=== PATIENT | male | born 1955 | race Caucasian/White ===

== ENCOUNTER → 2018-01-19 | Outpatient (CLI) | payer OTHER | END | disposition home or self-care (01) | LOC: CFH 12:04 | PROVIDERS: ATTEND Family Medicine | DX: J44.9 Chronic obstructive pulmonary disease, unspecified (principal); R09.89 Other specified symptoms and signs involving the circulatory and respiratory systems | CPT/HCPCS: 71046 ==

== ENCOUNTER 2018-06-05 16:24 | Inpatient (IN) | payer OTHER ==
[~2018-06-05] VITALS: Ht 172.7 cm; Wt 113.7 kg
--- NOTE | 2018-06-05 16:51 | NUR ---
Pt to 29 from lobby
[2018-06-05 17:02] LABS: BASOPHILS # (AUTO) 0.06 x10^3/uL (0-0.1); BASOPHILS % (AUTO) 1 % (0-1); EOSINOPHILS # (AUTO) 0.18 x10^3/uL (0-0.4); EOSINOPHILS % (AUTO) 2 % (1-7); LYMPHOCYTES # (AUTO) 1.03 x10^3/uL (1-3.4); LYMPHOCYTES % (AUTO) 14 % (22-44); MD NO; MEAN CORPUSCULAR HEMOGLOBIN 30.6 pg (27.5-34.5); MEAN CORPUSCULAR HGB CONC 33.7 g/dL (33.2-36.2); MEAN CORPUSCULAR VOLUME 90.9 fL (81-97); MEAN PLATELET VOLUME 8.5 fL (7.4-10.4); MONOCYTES # (AUTO) 0.73 x10^3/uL (0.2-0.8); MONOCYTES % (AUTO) 10 % (2-9); NEUTROPHILS # (AUTO) 5.59 x10^3/uL (1.8-6.8); NEUTROPHILS % (AUTO) 74 % (42-75); PLATELET COUNT 251 x10^3/uL (130-400); RED BLOOD COUNT 5.23 x10^6/uL (4.38-5.82); RED CELL DISTRIBUTION WIDTH 13.7 % (9.4-14.8)
[2018-06-05] MEDS ORDERED: methylPREDNISolone SOD SUCC 125 MG/2 ML ONE (17:12)
[2018-06-05 17:14] LABS: ALBUMIN 4.2 g/dL (3.4-5.0); ANION GAP 5 mmol/L (5-15); CALCIUM 8.7 mg/dL (8.5-10.1); CHLORIDE 106 mmol/L (98-107); CREATININE 1.03 mg/dL (0.7-1.3)
[2018-06-05] MEDS ORDERED: ALBUTEROL/IPRATROPIUM 2.5MG/0.5MG, 3 ML ONE ×2 (17:15→21:23)
[2018-06-05 17:19] LABS: TROPONIN I < 0.015 ng/mL (0.000-0.045)
[2018-06-05] MEDS ORDERED: methylPREDNISolone SOD SUCC 125 MG/2 ML IVPush SCH (17:30)
[2018-06-05] MEDS ORDERED: ALBUTEROL/IPRATROPIUM 2.5MG/0.5MG, 3 ML NPPB SCH (17:30)
--- NOTE | 2018-06-05 17:39 | NUR ---
LATE ENTRY: PT ARRIVES TO ED WITH C/O OF SOB X 2 DAYS. PT REPORTS HE HAS HAD DIFFICULTY AMBULATING DUE TO SOB AND NOT BEING ABLE TO CATCH HIS BREATH. PT DENIES ANY RECENT ILLNESS. PT DOES HAVE COPD AND DOES NOT HAVE EXACERBATIONS VERY OFTEN. PT ON ARRIVAL WAS HYPOXIC SO HE WAS PLACED ON O2 AND PIV PLACED. PT CONNECTED TO ALL MONITORS AND CALL LIGHT IN REACH. AWAITING FURTHER ORDERS.
[2018-06-05] MEDS ORDERED: CEFTRIAXONE PMX 1GM/50ML 50 ML ONE (17:49)
[2018-06-05] MEDS ORDERED: FLUT1BLS3 PO (18:26)
[2018-06-05] MEDS ORDERED: ALBU8.5H8 PO (18:27)
[2018-06-05] MEDS ORDERED: AMLO10TA8 PO (18:27)
[2018-06-05] MEDS ORDERED: GUAIFENESIN/DM 200-20MG, 10ML UDC PO PRN (19:00)
[2018-06-05] MEDS ORDERED: ACETAMINOPHEN 325 MG TABLET PO PRN (19:00)
[2018-06-05] MEDS ORDERED: BISACODYL 10 MG SUPP PR PRN (19:00)
[2018-06-05] MEDS ORDERED: ONDANSETRON ODT 4 MG PO PRN (19:00)
[2018-06-05] MEDS ORDERED: MAGNESIUM SULFATE PMX 2GM/50ML 50 ML IV ONE (19:00)
[2018-06-05] MEDS ORDERED: POLYETHYLENE GLYCOL 17 GM PACKET PO PRN (19:00)
--- NOTE | 2018-06-05 19:51 | NUR ---
PT UPDATED ON POC AND VERBALIZES UNDERSTANDING. VSS AND UPDATED IN EMR. ATTEMPTED REPORT OF PT TO DENNIS COHEN, BUT PER FLOOR, RN UNAVAILABLE FOR REPORT AT THIS TIME.
[2018-06-05 20:35] VITALS: BP 143/80
[2018-06-05] MEDS: HEPARIN 5,000 UNITS/ML, 1ML SQ SCH (21:02)
[2018-06-05] MEDS: DOXYCYCLINE 100 MG in DEXTROSE 5% 250 ML IV SCH (21:03)
[2018-06-05] MEDS: SODIUM CHLORIDE FLUSH 10ML SYR IVF SCH (21:04)
[2018-06-05] MEDS: ALBUTEROL/IPRATROPIUM 2.5MG/0.5MG, 3 ML NPPB SCH (21:30)
[2018-06-05] MEDS ORDERED: ALBUTEROL/IPRATROPIUM 2.5MG/0.5MG, 3 ML NPPB PRN (21:30)
[2018-06-05] MEDS: methylPREDNISolone SOD SUCC 125 MG/2 ML IVPush SCH (23:20)
[2018-06-06 02:23] VITALS: BP 115/61
[2018-06-06] MEDS: ALBUTEROL/IPRATROPIUM 2.5MG/0.5MG, 3 ML NPPB SCH ×4 (03:00→21:15)
[2018-06-06] MEDS: methylPREDNISolone SOD SUCC 125 MG/2 ML IVPush SCH ×4 (05:17→23:23)
[2018-06-06] MEDS: HEPARIN 5,000 UNITS/ML, 1ML SQ SCH ×3 (05:17→20:55)
[2018-06-06 05:25] LABS: CHLORIDE 105 mmol/L (98-107)
[2018-06-06 05:26] LABS: BASOPHILS # (AUTO) 0.01 x10^3/uL (0-0.1); BASOPHILS % (AUTO) 0 % (0-1); EOSINOPHILS % (AUTO) 0 % (1-7); LYMPHOCYTES % (AUTO) 11 % (22-44); MD NO; MEAN CORPUSCULAR HEMOGLOBIN 30.8 pg (27.5-34.5); MEAN CORPUSCULAR HGB CONC 33.9 g/dL (33.2-36.2); MEAN CORPUSCULAR VOLUME 90.8 fL (81-97); MEAN PLATELET VOLUME 8.6 fL (7.4-10.4); MONOCYTES # (AUTO) 0.14 x10^3/uL (0.2-0.8); MONOCYTES % (AUTO) 3 % (2-9); NEUTROPHILS # (AUTO) 4.56 x10^3/uL (1.8-6.8); NEUTROPHILS % (AUTO) 86 % (42-75); PLATELET COUNT 218 x10^3/uL (130-400); RED BLOOD COUNT 4.75 x10^6/uL (4.38-5.82); RED CELL DISTRIBUTION WIDTH 13.6 % (9.4-14.8)
[2018-06-06 05:34] LABS: ALANINE AMINOTRANSFERASE 27 U/L (12-78); ALBUMIN 3.6 g/dL (3.4-5.0); ALKALINE PHOSPHATASE 78 U/L (45-117); ANION GAP 4 mmol/L (5-15); BILIRUBIN,TOTAL 0.5 mg/dL (0.2-1.0); CALCIUM 8.5 mg/dL (8.5-10.1); CREATININE 0.89 mg/dL (0.7-1.3)
[2018-06-06] MEDS: BUDESONIDE 0.5 MG/2 ML INHA NPPB SCH ×2 (07:07→21:15)
[2018-06-06 07:40] VITALS: BP 122/72
[2018-06-06] MEDS: SENNA/DOCUSATE TABLET PO SCH (08:52)
[2018-06-06] MEDS: AMLODIPINE 10 MG TAB PO SCH (08:52)
[2018-06-06] MEDS: SODIUM CHLORIDE FLUSH 10ML SYR IVF SCH ×2 (08:53→20:55)
[2018-06-06] MEDS: DOXYCYCLINE 100 MG in DEXTROSE 5% 250 ML IV SCH ×2 (08:53→20:54)
[2018-06-06] MEDS ORDERED: MAALOX/HYOSCYAMINE/LIDOCAINE 45 ML BTL PO PRN (11:30)
[2018-06-06] MEDS: PANTOPROZOLE 40MG TABLET PO SCH (11:54)
[2018-06-06 13:21] VITALS: BP 139/73
[2018-06-06 20:32] VITALS: BP 126/72
[2018-06-07 00:59] VITALS: BP 142/78
[2018-06-07] MEDS: ALBUTEROL/IPRATROPIUM 2.5MG/0.5MG, 3 ML NPPB SCH ×4 (03:15→18:31)
[2018-06-07] MEDS: HEPARIN 5,000 UNITS/ML, 1ML SQ SCH ×3 (04:28→21:52)
[2018-06-07] MEDS: PANTOPROZOLE 40MG TABLET PO SCH (04:29)
[2018-06-07] MEDS: methylPREDNISolone SOD SUCC 125 MG/2 ML IVPush SCH ×2 (04:29→11:06)
[2018-06-07] MEDS: BUDESONIDE 0.5 MG/2 ML INHA NPPB SCH ×2 (07:02→18:31)
[2018-06-07 07:30] VITALS: BP 125/71
[2018-06-07] MEDS: AMLODIPINE 10 MG TAB PO SCH (09:13)
[2018-06-07] MEDS: DOXYCYCLINE 100 MG in DEXTROSE 5% 250 ML IV SCH ×2 (09:13→21:52)
[2018-06-07] MEDS: SENNA/DOCUSATE TABLET PO SCH (09:13)
[2018-06-07] MEDS: SODIUM CHLORIDE FLUSH 10ML SYR IVF SCH ×2 (09:14→21:52)
[2018-06-07 12:29] VITALS: BP 114/60
[2018-06-07] MEDS: methylPREDNISolone SOD SUCC 40 MG/ML IVPush SCH (19:31)
[2018-06-07 20:36] VITALS: BP 129/69
[2018-06-08] MEDS: ALBUTEROL/IPRATROPIUM 2.5MG/0.5MG, 3 ML NPPB SCH ×4 (02:37→18:40)
[2018-06-08 03:32] VITALS: BP 136/68
[2018-06-08] MEDS: methylPREDNISolone SOD SUCC 40 MG/ML IVPush SCH ×3 (04:12→19:45)
[2018-06-08] MEDS: PANTOPROZOLE 40MG TABLET PO SCH (05:19)
[2018-06-08] MEDS: HEPARIN 5,000 UNITS/ML, 1ML SQ SCH ×3 (05:19→21:55)
[2018-06-08 07:25] VITALS: BP 128/70
[2018-06-08] MEDS: SENNA/DOCUSATE TABLET PO SCH (08:53)
[2018-06-08] MEDS: AMLODIPINE 10 MG TAB PO SCH (08:53)
[2018-06-08] MEDS: SODIUM CHLORIDE FLUSH 10ML SYR IVF SCH ×2 (08:54→19:45)
[2018-06-08] MEDS: DOXYCYCLINE 100 MG in DEXTROSE 5% 250 ML IV SCH ×2 (08:54→21:56)
[2018-06-08] MEDS: BUDESONIDE 0.5 MG/2 ML INHA NPPB SCH ×2 (10:06→18:40)
[2018-06-08 12:13] VITALS: BP 121/59
[2018-06-08 20:20] VITALS: BP 130/64
[2018-06-09 01:05] VITALS: BP 144/77
[2018-06-09] MEDS: ALBUTEROL/IPRATROPIUM 2.5MG/0.5MG, 3 ML NPPB SCH ×4 (03:00→18:44)
[2018-06-09] MEDS: methylPREDNISolone SOD SUCC 40 MG/ML IVPush SCH ×3 (03:22→19:26)
[2018-06-09] MEDS: HEPARIN 5,000 UNITS/ML, 1ML SQ SCH ×3 (05:03→21:59)
[2018-06-09] MEDS: PANTOPROZOLE 40MG TABLET PO SCH (05:03)
[2018-06-09 07:40] VITALS: BP 155/80
[2018-06-09] MEDS: SENNA/DOCUSATE TABLET PO SCH (07:57)
[2018-06-09] MEDS: AMLODIPINE 10 MG TAB PO SCH (07:57)
[2018-06-09] MEDS: SODIUM CHLORIDE FLUSH 10ML SYR IVF SCH ×2 (09:00→21:59)
[2018-06-09] MEDS ORDERED: GUAI5SYR PO (09:14)
[2018-06-09] MEDS ORDERED: DOXY100T PO (09:14)
[2018-06-09] MEDS ORDERED: PRED20TA PO (09:14)
[2018-06-09] MEDS ORDERED: IPRA3AMP30 NPPB (09:14)
[2018-06-09] MEDS: BUDESONIDE 0.5 MG/2 ML INHA NPPB SCH ×2 (09:23→18:44)
[2018-06-09] MEDS: DOXYCYCLINE 100 MG in DEXTROSE 5% 250 ML IV SCH ×2 (09:37→21:59)
[2018-06-09 12:51] VITALS: BP 149/79
[2018-06-09 18:41] VITALS: BP 134/77
[2018-06-10 01:03] VITALS: BP 153/81
[2018-06-10] MEDS: ALBUTEROL/IPRATROPIUM 2.5MG/0.5MG, 3 ML NPPB SCH ×2 (01:08→09:00)
[2018-06-10] MEDS: methylPREDNISolone SOD SUCC 40 MG/ML IVPush SCH ×2 (03:22→10:21)
[2018-06-10] MEDS: HEPARIN 5,000 UNITS/ML, 1ML SQ SCH (05:24)
[2018-06-10] MEDS: PANTOPROZOLE 40MG TABLET PO SCH (05:24)
[2018-06-10 07:25] VITALS: BP 170/96
[2018-06-10] MEDS: DOXYCYCLINE 100 MG in DEXTROSE 5% 250 ML IV SCH (08:41)
[2018-06-10] MEDS: AMLODIPINE 10 MG TAB PO SCH (08:42)
[2018-06-10] MEDS: SENNA/DOCUSATE TABLET PO SCH (08:42)
[2018-06-10] MEDS: BUDESONIDE 0.5 MG/2 ML INHA NPPB SCH (09:00)
[2018-06-10] MEDS: SODIUM CHLORIDE FLUSH 10ML SYR IVF SCH (09:00)
== END 2018-06-10 12:17 | disposition home health service (06) | DRG 189 ==
LOC: ED 17:00 → EDIP 17:31 → 4NOR 20:33
PROVIDERS: ADMIT Hospitalist; ATTEND Hospitalist
DX: J96.21 Acute and chronic respiratory failure with hypoxia (principal); J44.1 Chronic obstructive pulmonary disease with (acute) exacerbation; G47.419 Narcolepsy without cataplexy; I10 Essential (primary) hypertension; K21.9 Gastro-esophageal reflux disease without esophagitis; Z82.0 Family history of epilepsy and other diseases of the nervous system; Z87.891 Personal history of nicotine dependence; Z99.81 Dependence on supplemental oxygen
CPT/HCPCS: 36415; 99285; J7620; J7626; 71045; 80048; 80053; 82040; 83880; 84484; 85025; 93005; 94640; 96374; 96375; G0378; J1644; J7060; J2920; J2930; J3475

== ENCOUNTER → 2018-08-10 | Outpatient (CLI) | payer OTHER ==
[~2018-08-10] MED LIST: ALBU8.5H8 PO; AMLO10TA8 PO; DOXY100T PO; FLUT1BLS3 PO; GUAI5SYR PO; IPRA3AMP30 NPPB; PRED20TA PO
== END | disposition home or self-care (01) ==
LOC: CFH 09:27
PROVIDERS: ATTEND Nurse Practitioner
DX: Z12.2 Encounter for screening for malignant neoplasm of respiratory organs (principal); R91.8 Other nonspecific abnormal finding of lung field; Z87.891 Personal history of nicotine dependence
CPT/HCPCS: G0297

== ENCOUNTER → 2018-08-16 | Outpatient (CLI) | payer OTHER | END | disposition home or self-care (01) | LOC: CFH 13:33 | PROVIDERS: ATTEND Family Medicine | DX: J44.9 Chronic obstructive pulmonary disease, unspecified (principal); R01.1 Cardiac murmur, unspecified; I10 Essential (primary) hypertension | CPT/HCPCS: 93306 ==

== ENCOUNTER → 2018-10-05 | Outpatient (CLI) | payer OTHER ==
[~2018-10-05] MED LIST changes: +REGADENOSON 0.4 MG/5 ML SYRINGE ONE
== END | disposition home or self-care (01) ==
LOC: CFH 08:17
PROVIDERS: ATTEND Internal Medicine Cardiovascular Disease
DX: R94.31 Abnormal electrocardiogram [ECG] [EKG] (principal)
CPT/HCPCS: 78452; 93017; A9502; J2785

== ENCOUNTER 2018-11-21 22:02 | Emergency (ER) | payer OTHER ==
[~2018-11-21] VITALS: Ht 172.7 cm; Wt 112.0 kg
[2018-11-21 22:12] VITALS: BP 162/104
== END 2018-11-21 23:17 | disposition home or self-care (01) ==
LOC: ED 23:00
DX: M10.072 Idiopathic gout, left ankle and foot (principal); J44.9 Chronic obstructive pulmonary disease, unspecified; I10 Essential (primary) hypertension
CPT/HCPCS: 73610; 73630; 96372; 99283; J1885

== ENCOUNTER 2019-02-26 11:33 | Emergency (ER) | payer OTHER ==
[~2019-02-26] VITALS: Ht 170.2 cm; Wt 111.0 kg
[~2019-02-26 11:33] MED LIST changes: -REGADENOSON 0.4 MG/5 ML SYRINGE ONE
--- NOTE | 2019-02-26 12:28 | NUR ---
Plan of care updated with patient, questions answered.
[2019-02-26 12:58] LABS: BASOPHILS # (AUTO) 0.04 x10^3/uL (0-0.1); BASOPHILS % (AUTO) 1 % (0-1); EOSINOPHILS # (AUTO) 0.18 x10^3/uL (0-0.4); EOSINOPHILS % (AUTO) 3 % (1-7); LYMPHOCYTES # (AUTO) 0.94 x10^3/uL (1-3.4); LYMPHOCYTES % (AUTO) 17 % (22-44); MD NO; MEAN CORPUSCULAR HEMOGLOBIN 30.6 pg (27.5-34.5); MEAN CORPUSCULAR HGB CONC 32.8 g/dL (33.2-36.2); MEAN CORPUSCULAR VOLUME 93.3 fL (81-97); MEAN PLATELET VOLUME 8.8 fL (7.4-10.4); MONOCYTES # (AUTO) 0.53 x10^3/uL (0.2-0.8); MONOCYTES % (AUTO) 9 % (2-9); NEUTROPHILS # (AUTO) 3.93 x10^3/uL (1.8-6.8); NEUTROPHILS % (AUTO) 70 % (42-75); PLATELET COUNT 223 x10^3/uL (130-400); RED BLOOD COUNT 4.69 x10^6/uL (4.38-5.82); RED CELL DISTRIBUTION WIDTH 14.5 % (9.4-14.8)
[2019-02-26 13:10] LABS: ALBUMIN 3.9 g/dL (3.4-5.0); ANION GAP 3 mmol/L (5-15); CALCIUM 8.9 mg/dL (8.5-10.1); CHLORIDE 107 mmol/L (98-107); CREATININE 0.86 mg/dL (0.7-1.3)
[2019-02-26 13:19] LABS: HCT (SEDRATE) 43.8 % (39.2-51.8)
--- NOTE | 2019-02-26 13:51 | NUR ---
Plan of care updated, call duarte within reach. Waiting for ESR results.
[2019-02-26] MEDS ORDERED: FLUT1BLS3 IH (14:19)
[2019-02-26 14:26] VITALS: BP 151/84
--- NOTE | 2019-02-26 14:27 | NUR ---
Discharge instructions discussed with patient including when to return to emergency department, patient verbalizes understanding. Prescriptions given to patient with instruction for use, verbalize understanding. Patient ambulates out of department with steady gait.
--- NOTE | 2019-02-26 14:27 | NUR ---
Wound care fax referral sent with appropriate documents.
== END 2019-02-26 14:30 | disposition home or self-care (01) ==
LOC: ED 12:45
DX: L89.629 Pressure ulcer of left heel, unspecified stage (principal); L08.9 Local infection of the skin and subcutaneous tissue, unspecified; I10 Essential (primary) hypertension; J44.9 Chronic obstructive pulmonary disease, unspecified; Z87.891 Personal history of nicotine dependence
CPT/HCPCS: 36415; 80048; 82040; 85025; 85651; 99284

== ENCOUNTER → 2019-03-01 | Outpatient (CLI) | payer OTHER ==
[~2019-03-01] MED LIST changes: +FLUT1BLS3 IH
== END | disposition home or self-care (01) ==
LOC: WOUND 08:55
PROVIDERS: ATTEND Internal Medicine
DX: I70.245 Atherosclerosis of native arteries of left leg with ulceration of other part of foot (principal); L97.521 Non-pressure chronic ulcer of other part of left foot limited to breakdown of skin; I87.311 Chronic venous hypertension (idiopathic) with ulcer of right lower extremity; L97.212 Non-pressure chronic ulcer of right calf with fat layer exposed; J44.9 Chronic obstructive pulmonary disease, unspecified; E66.9 Obesity, unspecified; Z87.891 Personal history of nicotine dependence; Z68.38 Body mass index [BMI] 38.0-38.9, adult
CPT/HCPCS: 97597; 99215

== ENCOUNTER 2019-03-08 09:07 | Outpatient (CLI) | END 2019-03-08 23:59 | disposition home or self-care (01) | LOC: WOUND 09:07 | PROVIDERS: ATTEND Internal Medicine | DX: I70.245 Atherosclerosis of native arteries of left leg with ulceration of other part of foot (principal); L97.521 Non-pressure chronic ulcer of other part of left foot limited to breakdown of skin; I87.311 Chronic venous hypertension (idiopathic) with ulcer of right lower extremity; L97.212 Non-pressure chronic ulcer of right calf with fat layer exposed; J44.9 Chronic obstructive pulmonary disease, unspecified; E66.9 Obesity, unspecified; Z87.891 Personal history of nicotine dependence; Z68.38 Body mass index [BMI] 38.0-38.9, adult | CPT/HCPCS: 97597 ==

== ENCOUNTER 2019-03-15 11:00 | Outpatient (CLI) | payer OTHER | END 2019-03-15 23:59 | disposition home or self-care (01) | LOC: WOUND 11:00 | PROVIDERS: ATTEND Internal Medicine | DX: I70.245 Atherosclerosis of native arteries of left leg with ulceration of other part of foot (principal); L97.521 Non-pressure chronic ulcer of other part of left foot limited to breakdown of skin; I87.311 Chronic venous hypertension (idiopathic) with ulcer of right lower extremity; L97.212 Non-pressure chronic ulcer of right calf with fat layer exposed; J44.9 Chronic obstructive pulmonary disease, unspecified; E66.9 Obesity, unspecified; Z87.891 Personal history of nicotine dependence; Z68.38 Body mass index [BMI] 38.0-38.9, adult | CPT/HCPCS: 99214 ==

== ENCOUNTER 2019-03-15 12:53 | Outpatient (CLI) | payer OTHER | END 2019-03-15 23:59 | disposition home or self-care (01) | LOC: CVU 12:53 | PROVIDERS: ATTEND Internal Medicine | DX: I82.812 Embolism and thrombosis of superficial veins of left lower extremity (principal); I70.203 Unspecified atherosclerosis of native arteries of extremities, bilateral legs; I10 Essential (primary) hypertension; L97.421 Non-pressure chronic ulcer of left heel and midfoot limited to breakdown of skin; Z87.891 Personal history of nicotine dependence | CPT/HCPCS: 93922; 93925; 93970 ==

== ENCOUNTER → 2019-03-22 | Outpatient (CLI) | payer OTHER | END | disposition home or self-care (01) | LOC: WOUND 09:12 | PROVIDERS: ATTEND Internal Medicine | DX: I70.245 Atherosclerosis of native arteries of left leg with ulceration of other part of foot (principal); L97.521 Non-pressure chronic ulcer of other part of left foot limited to breakdown of skin; I87.311 Chronic venous hypertension (idiopathic) with ulcer of right lower extremity; L97.212 Non-pressure chronic ulcer of right calf with fat layer exposed; J44.9 Chronic obstructive pulmonary disease, unspecified; E66.9 Obesity, unspecified; Z87.891 Personal history of nicotine dependence; Z68.38 Body mass index [BMI] 38.0-38.9, adult | CPT/HCPCS: 29581 ==

== ENCOUNTER → 2019-03-29 | Outpatient (CLI) | payer OTHER | END | disposition home or self-care (01) | LOC: WOUND 09:34 | PROVIDERS: ATTEND Internal Medicine | DX: I70.245 Atherosclerosis of native arteries of left leg with ulceration of other part of foot (principal); L97.521 Non-pressure chronic ulcer of other part of left foot limited to breakdown of skin; I87.311 Chronic venous hypertension (idiopathic) with ulcer of right lower extremity; L97.212 Non-pressure chronic ulcer of right calf with fat layer exposed; J44.9 Chronic obstructive pulmonary disease, unspecified; E66.9 Obesity, unspecified; Z87.891 Personal history of nicotine dependence; Z68.38 Body mass index [BMI] 38.0-38.9, adult | CPT/HCPCS: 97597 ==

== ENCOUNTER → 2019-04-07 | Outpatient (CLI) | payer OTHER | END | disposition home or self-care (01) | LOC: WOUND 09:23 | PROVIDERS: ATTEND Family Medicine | DX: I87.311 Chronic venous hypertension (idiopathic) with ulcer of right lower extremity (principal); I70.245 Atherosclerosis of native arteries of left leg with ulceration of other part of foot; L97.521 Non-pressure chronic ulcer of other part of left foot limited to breakdown of skin; L97.212 Non-pressure chronic ulcer of right calf with fat layer exposed; J44.9 Chronic obstructive pulmonary disease, unspecified; E66.9 Obesity, unspecified; Z87.891 Personal history of nicotine dependence; Z68.38 Body mass index [BMI] 38.0-38.9, adult | CPT/HCPCS: 99214 ==

== ENCOUNTER 2019-04-21 09:30 | Outpatient (CLI) | payer OTHER | END 2019-04-21 23:59 | disposition home or self-care (01) | LOC: WOUND 09:30 | PROVIDERS: ATTEND Family Medicine | DX: I87.311 Chronic venous hypertension (idiopathic) with ulcer of right lower extremity (principal); I70.245 Atherosclerosis of native arteries of left leg with ulceration of other part of foot; L97.521 Non-pressure chronic ulcer of other part of left foot limited to breakdown of skin; L97.212 Non-pressure chronic ulcer of right calf with fat layer exposed; J44.9 Chronic obstructive pulmonary disease, unspecified; E66.9 Obesity, unspecified; Z87.891 Personal history of nicotine dependence; Z68.38 Body mass index [BMI] 38.0-38.9, adult | CPT/HCPCS: 97597 ==

== ENCOUNTER 2019-05-05 09:25 | Outpatient (CLI) | payer OTHER | END 2019-05-05 23:59 | disposition home or self-care (01) | LOC: WOUND 09:25 | PROVIDERS: ATTEND Family Medicine | DX: I87.311 Chronic venous hypertension (idiopathic) with ulcer of right lower extremity (principal); I70.245 Atherosclerosis of native arteries of left leg with ulceration of other part of foot; L97.521 Non-pressure chronic ulcer of other part of left foot limited to breakdown of skin; L97.212 Non-pressure chronic ulcer of right calf with fat layer exposed; J44.9 Chronic obstructive pulmonary disease, unspecified; E66.9 Obesity, unspecified; Z87.891 Personal history of nicotine dependence; Z68.38 Body mass index [BMI] 38.0-38.9, adult | CPT/HCPCS: 99213 ==

== ENCOUNTER 2019-05-12 09:20 | Outpatient (CLI) | payer OTHER | END 2019-05-12 23:59 | disposition home or self-care (01) | LOC: WOUND 09:20 | PROVIDERS: ATTEND Family Medicine | DX: I87.311 Chronic venous hypertension (idiopathic) with ulcer of right lower extremity (principal); I70.245 Atherosclerosis of native arteries of left leg with ulceration of other part of foot; L97.212 Non-pressure chronic ulcer of right calf with fat layer exposed; S91.302D Unspecified open wound, left foot, subsequent encounter; J44.9 Chronic obstructive pulmonary disease, unspecified; E66.9 Obesity, unspecified; Z87.891 Personal history of nicotine dependence; Z68.38 Body mass index [BMI] 38.0-38.9, adult; X58.XXXD Exposure to other specified factors, subsequent encounter | CPT/HCPCS: 99212 ==

== ENCOUNTER → 2019-05-18 | Outpatient (CLI) | payer OTHER | END | disposition home or self-care (01) | LOC: CFH 09:04 | PROVIDERS: ATTEND Nurse Practitioner | DX: R91.8 Other nonspecific abnormal finding of lung field (principal); K44.9 Diaphragmatic hernia without obstruction or gangrene; R59.0 Localized enlarged lymph nodes | CPT/HCPCS: 71250 ==

== ENCOUNTER → 2020-05-28 | Outpatient (CLI) | payer OTHER ==
[~2020-05-28] MED LIST changes: +AMLO-211 PO; -AMLO10TA8 PO
== END | disposition home or self-care (01) ==
LOC: CFH 09:05
PROVIDERS: ATTEND Nurse Practitioner Family
DX: R91.8 Other nonspecific abnormal finding of lung field (principal); R59.0 Localized enlarged lymph nodes; K44.9 Diaphragmatic hernia without obstruction or gangrene
CPT/HCPCS: 71250

== ENCOUNTER 2020-06-09 13:04 | Emergency (ER) | payer OTHER ==
[~2020-06-09] VITALS: Ht 172.7 cm; Wt 106.4 kg
--- NOTE | 2020-06-09 13:14 | NUR ---
PATIENT AMBULATED TO ROOM WITH STEADY GAIT.
[2020-06-09] MEDS ORDERED: OXYcodone/APAP 5/325MG TABLET PO ONE (13:30)
[2020-06-09] MEDS ORDERED: OXYcodone/APAP 5/325MG TABLET ONE (13:32)
--- NOTE | 2020-06-09 13:37 | NUR ---
PT CAME IN CO RIGHT SIDED CP AFTER TAKING A MGLF AT WORK.
--- NOTE | 2020-06-09 14:21 | NUR ---
BREAK RN: DR SANTOS IN ROOM UPDATING PATIENT. INCENTIVE SPIROMETER TEACHING DONE. VS STABLE. NO ACUTE DISTRESS. WILL COTNINUE TO MONITOR WHILE PRIMARY RN IS ON BREAK.
[2020-06-09 14:23] VITALS: BP 131/56
== END 2020-06-09 14:50 | disposition home or self-care (01) ==
LOC: ED 13:55
DX: S20.211A Contusion of right front wall of thorax, initial encounter (principal); I44.4 Left anterior fascicular block; I45.10 Unspecified right bundle-branch block; I10 Essential (primary) hypertension; E11.9 Type 2 diabetes mellitus without complications; J44.9 Chronic obstructive pulmonary disease, unspecified; Z87.891 Personal history of nicotine dependence; W01.0XXA Fall on same level from slipping, tripping and stumbling without subsequent striking against object, initial encounter; Y93.89 Activity, other specified; Y92.89 Other specified places as the place of occurrence of the external cause; Y99.8 Other external cause status
CPT/HCPCS: 71250; 93005; 99284